=== PATIENT | male | born 1960 | race Caucasian/White ===

== ENCOUNTER 2016-07-01 12:10 | Day surgery (SDC) | payer OTHER ==
[~2016-07-01] VITALS: Ht 177.8 cm; Wt 62.4 kg
[2016-07-01 13:09] VITALS: Ht 177.8 cm; Wt 62.4 kg
[2016-07-01 13:42] VITALS: BP 111/68; PULSE 93; RESP 18
[2016-07-01] MEDS ORDERED: PROPOFOL 20 ML ONE (15:22)
[2016-07-01] MEDS ORDERED: MIDAZOLAM 1 MG/ML 2 ML INJ ONE (15:23)
[2016-07-01] MEDS ORDERED: FENTAnyl 50 MCG/ML VIAL ONE (15:23)
[2016-07-01 16:04] VITALS: BP 115/72; PULSE 77; RESP 19
--- NOTE | 2016-07-03 05:07 | GILP ---
DATE OF PROCEDURE: 07/01/2016 NAME OF PROCEDURE: Colonoscopy to cecum. SURGEON: Mihaela Scherer MD HISTORY AND INDICATIONS: The patient is here for colorectal cancer screening. PREMEDICATION: Monitored anesthesia care by anesthesiologist. INSTRUMENT USED: Olympus colonoscope. PREPARATION: Adequate. TECHNIQUE: After informed consent, with the patient/relatives understanding the procedure, its steffany cations potential risks and complications including but not limited to allergic reaction, bleeding, perforation, infection, missed lesions and after all pertinent questions were answered to the patien t's satisfaction, the patient/relatives signed the witnessed informed consent. Following this, premedication was administered slowly IV push by under careful cardiovascular and re spiratory monitoring with pulse oximetry, automatic blood pressure and wrist liner. Once the sedativ e effect was achieved, the patient was placed in the left lateral decubitus position, digital rectal examination was performed. The colonoscope was then introduced and advanced under visual control th roughout all segments of the colon including: the rectum, sigmoid, descending colon, splenic flexure , transverse colon, hepatic flexure, ascending colon and finally reaching the cecum which was clearl y identified by transillumination, finger indentation and the ileocecal valve. Careful examination o f the mucosa of the lower gastrointestinal tract both on insertion as well as withdrawal of the inst rument disclosed the following findings: Rectal Examination: No evidence of perirectal disease, no masses. Colonic Mucosa: Colonic mucosa entirely unremarkable throughout. The ileocecal valve was clearly i dentified and appears unremarkable. The instrument was withdrawn, re-examining the mucosa in detail . No additional abnormalities are noted with exception of some small internal hemorrhoids. The instrument was then withdrawn. The patient tolerated the procedure well and was transferred out of the endoscopy suite awake and in good condition to continue recovery under observation. IMPRESSION: 1. Normal colonoscopy to cecum. 2. Small internal hemorrhoids of no clinical significance. PLAN: The patient will follow up as an outpatient. Annual Hemoccult stool testing is recommended, and screening colonoscopy in 10 years is recommended. Dictated By: MIHAELA SCHERER MS/EILEEN Conf#: [id number] DID#: [id number]
== END 2016-07-01 16:17 | disposition home or self-care (01) ==
LOC: EDSEX 12:10 → GIL 12:10
PROVIDERS: ATTEND Internal Medicine Gastroenterology
DX: Z12.11 Encounter for screening for malignant neoplasm of colon (principal); K64.8 Other hemorrhoids
CPT/HCPCS: 45378; J2250; J3010; Z7610